=== PATIENT | male | born 1950 | race Caucasian/White ===

== ENCOUNTER 2017-08-26 10:13 | Inpatient (IN) | payer MEDICARE, OTHER ==
[~2017-08-26] VITALS: Ht 172.7 cm; Wt 88.2 kg
[2017-08-26 13:34] LABS: BASOPHILS 0.2 % (0-2); EOSINOPHILS 0.3 % (0-7); HEMATOCRIT 41.1 % (42.0-54.0); HEMOGLOBIN 14.1 g/dL (13.5-17.5); IMMATURE GRANULOCYTES 0.3 % (0-5); MCH 30.9 pg (26.0-34.0); MCHC 34.3 g/dL (31.0-37.0); MCV 90.1 fL (80.0-100.0); MEAN PLATELET VOLUME 9.7 fL (7.4-10.4); MONOCYTES 6.5 % (2-11); NEUTROPHILS 78.7 % (40-80); PLATELET COUNT 158 10x3/uL (130-400); RBC 4.56 10x6/uL (4.20-6.10); RDW 13.2 % (11.5-14.5); WBC 11.8 10x3/uL (4.8-10.8)
[2017-08-26 13:45] LABS: INR 1.02 (0.85-1.17); PROTIME 13.3 SECONDS (11.6-15.0)
[2017-08-26 14:01] LABS: ALBUMIN 3.2 g/dL (3.4-5.0); ALKALINE PHOSPHATASE 95 U/L (46-116); ALT (SGPT) 21 U/L (10-68); BILIRUBIN - TOTAL 0.27 mg/dL (0.2-1.3); CALC OSMOLALITY 274 mosm/kg (275-300); CARBON DIOXIDE 25.4 mmol/L (21.0-32.0); CHLORIDE - SERUM 103 mmol/L (98-107); CREATININE - SERUM 0.9 mg/dL (0.6-1.3); GLUCOSE 97 mg/dL (74-106); POTASSIUM - SERUM 3.4 mmol/L (3.5-5.1); PROTEIN - SERUM 6.5 g/dL (6.4-8.2); SODIUM 136 mmol/L (136-145); UREA NITROGEN 20 mg/dL (7-18); eGFR NON AFRICAN AMERICAN 89 mL/min (90-120)
[2017-08-26 20:00] VITALS: BP 125/74; Ht 172.7 cm; Wt 88.2 kg
--- NOTE | 2017-08-26 20:06 | NUR ---
A&O, DENIES NEEDS, CALL LIGHT IN REACH, BED LOWEST POSITION, WILL CONTINUE TO MONITOR
[2017-08-26 20:44] VITALS: BP 104/64
[2017-08-27 00:27] VITALS: BP 111/63
[2017-08-27 04:59] VITALS: BP 122/62
--- NOTE | 2017-08-27 06:00 | NUR ---
EYES CLOSED RESPIRATIONS WITH EASE AND UNLABORED.
[2017-08-27 08:25] VITALS: BP 128/67
[2017-08-27] MEDS ORDERED: HYDROCHLOROTHIA25 MG PO (10:17)
[2017-08-27] MEDS ORDERED: OMEPRAZOLE20 M1 PO (10:17)
[2017-08-27] MEDS ORDERED: ZOCOR40 MG PO (10:18)
[2017-08-27] MEDS ORDERED: KLONOPIN1 MG PO (10:19)
[2017-08-27] MEDS ORDERED: HYDROCODONE-APA1 TAB PO (10:21)
[2017-08-27] MEDS ORDERED: FLOMAX0.4 MG PO (10:22)
[2017-08-27] MEDS ORDERED: MOBIC7.5 MG PO (10:22)
--- NOTE | 2017-08-27 10:42 | NUR ---
Patient Name: MARGARITA NOGUEIRA Admission Status: ER Accout number: [id number] Admission Date: 08-26-2017 : 1950 Admission Diagnosis: Attending: ZULMA SHARIF Current LOS: 1 Anticipated DC Date: 08-29-2017 Planned Disposition: Home Primary Insurance: MEDICARE A & B Discharge Planning Comments: CM MET WITH PATIENT AND (DARLINE) REGARDING D/C NEEDS AND PLANS. PATIENT STATED HIS SON WILL DRIVE HIM HOME AT DISCHARGE. PATIENT STATED THERE ARE NO STEPS OR STAIRS AT HIS HOME. PATIENT IS INDEPENDENT WITH HIS CARE AND HAS A WALKER, BSC, AND CANE AT HOME. PATIENTS PCP IS DR. JAMISON AND PHARMACY IS [facility]. PATIENT DOES NOT WANT HOME HEALTH AT THIS TIME. CM WILL CONTINUE TO FOLLOW PATIENT WITH D/C NEEDS AND PLANS. PCP DR. JAMISON IN [facility]- [phone] DARLINE () [phone] Steam Box Tender: Cristal Srinivasan Is the patient Alert and Oriented? Yes 0 * How many steps to enter\exit or inside your home? 0 0 * PCP DR. Yaharia JAMISON IN [place] 0 * Pharmacy [facility] [place] [facility] * Preadmission Environment Home with Family 0 * ADLs Independent 0 * Equipment Bedside Commode Cane Walker 0 * List name and contact numbers for known caregivers / representatives who currently or will assist patient after discharge: DARLINE () [phone] * Community resources currently utilized None 0 * Additional services required to return to the preadmission environment? Yes 0 * Can the patient safely return to the preadmission environment? Yes 0 * Has this patient been hospitalized within the prior 30 days at any hospital? No 0 Grand Total: 0
--- NOTE | 2017-08-27 14:24 | NUR ---
VOIDED 350CC OF CLEAR URINE IN URINAL IN RR @1421
[2017-08-27 14:41] VITALS: BP 113/77
[2017-08-27 16:00] VITALS: BP 115/54
[2017-08-27 20:55] VITALS: BP 112/62
--- NOTE | 2017-08-27 22:12 | NUR ---
REC'D LYING IN BED. ALERT AND ORIENTED X4. DENIED PAIN AT THIS TIME. DENIED NEEDS AT THIS TIME. NO DISTRESS NOTED. INSTRUCTED TO CALL IF NEEDED ANYTHING, VERBALIZED UNDERSTANDING. WILL CONT TO MONITOR. BED LOW, LOCKED, CALL LIGHT IN REACH.
--- NOTE | 2017-08-28 01:15 | NUR ---
PATIENT IS RESTING QUIETLY WITH EYES CLOSED, NO SIGNS OF DISTRESS. BED IN LOWEST POSITION, CALL LIGHT IN REACH.
[2017-08-28 04:00] VITALS: BP 110/70
[2017-08-28 05:46] LABS: HEMATOCRIT 40.2 % (42.0-54.0); HEMOGLOBIN 13.6 g/dL (13.5-17.5)
--- NOTE | 2017-08-28 07:56 | NUR ---
PT LYING IN BED WITH HOB AT 35. PT REQUESTED COFFEE, STATED NO PAIN AT THIS TIME, BED IN LOW POSITION, CALL LIGHT IN REACH
[2017-08-28 08:00] VITALS: BP 157/62
--- NOTE | 2017-08-28 11:57 | NUR ---
PATIENT SITTING UP IN CHAIR READING PAPER AT THIS TIME. NO COMPLAINTS. IV INTACT. SHANK CARRIER FOR PAIN. CALL LIGHT WITHIN REACH.
--- NOTE | 2017-08-28 12:22 | NUR ---
REHAB PRESCREENING Rehab referral received and chart reviewed. Mr. Craig does not have a rehab diagnosis and does not meet admission criteria for acute inpatient rehab. Thank you for this referral! Jenni Linn [facility] Exterior Door Installer
--- NOTE | 2017-08-28 12:41 | NUR ---
CM REASSESSMENT NOTE: [facility] RADHA [facility]ULL[facility]) IN ROOM VISITING WITH PATIENT.
[2017-08-28 12:45] VITALS: BP 124/73
--- NOTE | 2017-08-28 14:55 | NUR ---
PT PARTS COUNTERMAN WAS DC, WASTED 27MG, PT HAS ORAL PAIN MEDS ORDERED IF NEEDED.
[2017-08-28 16:45] VITALS: BP 121/75
--- NOTE | 2017-08-28 19:00 | NUR ---
REPORT RECEIVED AND CARE OF PT ASSUMED. PT SITTING UP IN CHAIR WATCHING TV. IV IN LEFT FA SALINE LOCKED. WILL MONITOR CLOSLEY FOR NEEDS. CALL LIGHT WITHIN REACH.
[2017-08-28 20:16] VITALS: BP 123/59
--- NOTE | 2017-08-28 21:13 | NUR ---
HS MEDICATIONS GIVEN TO INCLUDE PERCOCET 10 PER REQUEST FOR PAIN, PER PRN ORDER. WILL CONTINUE TO MONITOR FOR NEEDS. PT SITTING UP IN CHAIR.
[2017-08-28 23:39] VITALS: BP 124/56
--- NOTE | 2017-08-29 01:40 | NUR ---
GAVE PERCOCET 10 PO PER PT REQUEST FOR PAIN AT LEVEL 7/10. WILL MONITOR FOR EFFECTIVENESS. PT SITTIN GUP IN CHAIR, STATES UNABLE TO SLEEP AT THIS TIME. WILL CONTINUE TO MONITO FOR NEEDS. CALL LIGHT WITHIN REACH.
[2017-08-29 05:42] VITALS: BP 120/57
[2017-08-29 06:07] LABS: HEMATOCRIT 36.4 % (42.0-54.0); HEMOGLOBIN 12.3 g/dL (13.5-17.5)
--- NOTE | 2017-08-29 07:45 | NUR ---
PT ASSESSMENT COMPLETE NO ACUTE DISTRESS NOTED VOICES ALL NEEDS TO STAFF. DRESSING INTACT TO LEFT LE. PT TO DISCHARGE OTDAY TO REHAB CENTER WILL FOLLOW
[2017-08-29] MEDS ORDERED: ELIQUIS2.5 MG PO (08:50)
[2017-08-29] MEDS ORDERED: PERCOCET 10/3251 TA1 PO (08:50)
[2017-08-29 09:06] VITALS: BP 116/61; BP 88/64
--- NOTE | 2017-08-29 09:10 | NUR ---
CM REASSESSMENT NOTE: PATIENT IS DISCHARGING HOME TODAY/DENIES HOME HEALTH/SPOUSE DRIVING PATIENT HOME. PATIENT HAD NO OTHER NEEDS FOR D/C.
--- NOTE | 2017-08-29 12:50 | NUR ---
DISCHARGE INSTRUCTIONS GIVEN AND UNDERSTANDING EXPRESSED PIV D/C REPORT CALLED TO [facility].
--- NOTE | 2017-08-29 14:00 | NUR ---
PT DISCHARGED WITH FACILTIY AT THIS TIME VIA WHEELCHAIR.
--- NOTE | 2017-10-16 13:43 | OP ---
PATIENT NAME: MARGARITA NOGUEIRA MEDICAL RECORD: [id number] :[birth year] LOCATION:[id number] ADMISSION DATE:08/26/17 SURGEON: ZULMA SHARIF MD DATE OF OPERATION: 08/27/2017 DATE OF PROCEDURE: 08/27/2017 PREOPERATIVE DIAGNOSIS: Left tibial plateau fracture. POSTOPERATIVE DIAGNOSIS: Left tibial plateau fracture. PROCEDURE: Open reduction and internal fixation of left tibial plateau fracture. SURGEON: Zulma Sharif MD ANESTHESIA: General. INTRAOPERATIVE COMPLICATIONS: None. SUMMARY OF PATHOLOGIC FINDINGS: Essentially none. OPERATIVE SUMMARY IN DETAIL: After obtaining the appropriate preoperative orthopedic surgery consent as well as anesthetic consultation, evaluation and clearance, the patient was brought to the operating room and placed on the operating table in supine position. After adequate general laryngeal mask airway was administered, tourniquet was placed about the proximal aspect of left lower extremity. Left lower extremity was then prepped and draped in a routine sterile fashion. The leg was elevated and exsanguinated, tourniquet was inflated to 350 mmHg. Routine curvilinear incision was made over the anterolateral aspect of the proximal tibia, taken up to just beneath the knee joint. Dissection was carried down. The entire lateral aspect of the bone was exposed. Then, under fluoroscopic guidance, large reduction clamps were utilized for reduction maneuver until it was felt that the tibial plateau was in the position. The Naila periarticular plate was utilized. Serial and sequential fixation was done with both combination of locking and compression screws. At this point, final radiographs were submitted for radiologist review. The wound was then copiously irrigated and closed in layers. The fascial plane closed with #1 Vicryl followed by #1 Vicryl, subq with 2-0 Vicryl and skin with sukhdeep. Sterile dressings were applied. The tourniquet was deflated. The patient was awakened, taken to recovery room in stable condition. All final needle and sponge counts were correct. TRANSINT:[id number] Voice Confirmation ID: [id number] DOCUMENT ID: [id number] ZULMA SHARIF MD at 1343 CC: [id number] DICTATION DATE: 10/16/17 1146 TORCH SHEARER: 10/16/17 1231 DIS IN 08/29/17 [facility] [address] [place] [address]
== END 2017-08-29 14:01 | DRG 494 ==
LOC: D.ER 10:13 → D.MS 14:19 → D.SDCHOLD 08-29 10:30 → D.MS 08-29 10:40
PROVIDERS: Physician Assistant; ADMIT Orthopaedic Surgery
PROC: 0QSH04Z Reposition Left Tibia with Internal Fixation Device, Open Approach (ICD-10-PCS; principal; 2017-08-26)
DX: S82.142A Displaced bicondylar fracture of left tibia, initial encounter for closed fracture (principal); V89.2XXA Person injured in unspecified motor-vehicle accident, traffic, initial encounter; K21.9 Gastro-esophageal reflux disease without esophagitis; J44.9 Chronic obstructive pulmonary disease, unspecified; F17.200 Nicotine dependence, unspecified, uncomplicated

== ENCOUNTER 2017-10-10 15:29 | Emergency (ER) | payer MEDICARE, OTHER ==
[2017-08-26 20:00] VITALS: BMI 29.5
[~2017-10-10 15:29] MED LIST: ELIQUIS2.5 MG PO; FLOMAX0.4 MG PO; HYDROCHLOROTHIA25 MG PO; HYDROCODONE-APA1 TAB PO; KLONOPIN1 MG PO; MOBIC7.5 MG PO; OMEPRAZOLE20 M1 PO; PERCOCET 10/3251 TA1 PO; ZOCOR40 MG PO
== END 2017-10-10 18:03 | disposition home or self-care (01) ==
LOC: D.ER 15:29
DX: T16.2XXA Foreign body in left ear, initial encounter (principal); X58.XXXA Exposure to other specified factors, initial encounter; Y93.89 Activity, other specified; Y92.019 Unspecified place in single-family (private) house as the place of occurrence of the external cause

== ENCOUNTER → 2018-11-19 11:20 | Outpatient (CLI) | payer MEDICARE, OTHER ==
[2017-08-26 20:00] VITALS: BMI 29.5
[2018-11-19 11:45] LABS: BASOPHILS 0.2 % (0-2); EOSINOPHILS 1.8 % (0-7); HEMATOCRIT 44.4 % (42.0-54.0); HEMOGLOBIN 15.3 g/dL (13.5-17.5); IMMATURE GRANULOCYTES 0.1 % (0-5); LYMPHOCYTES 20.9 % (15-50); MCH 31.2 pg (26.0-34.0); MCHC 34.5 g/dL (31.0-37.0); MCV 90.4 fL (80.0-100.0); MEAN PLATELET VOLUME 9.9 fL (7.4-10.4); MONOCYTES 6.5 % (2-11); NEUTROPHILS 70.5 % (40-80); RBC 4.91 10x6/uL (4.20-6.10); RDW 12.9 % (11.5-14.5); WBC 9.5 10x3/uL (4.8-10.8)
[2018-11-19 11:52] LABS: PLATELET COUNT 208 10x3/uL (130-400)
[2018-11-19 13:34] LABS: ERYTHROCYTE SEDIMENTATION RATE 35 mm/hr (0-20)
== END | disposition home or self-care (01) ==
LOC: D.LAB 11:20
PROVIDERS: Internal Medicine Gastroenterology
DX: R10.84 Generalized abdominal pain (principal); R11.0 Nausea; N18.6 End stage renal disease

== ENCOUNTER → 2019-01-26 13:35 | Outpatient (CLI) | payer MEDICARE | END | disposition home or self-care (01) | LOC: D.RT 13:35 | DX: J44.9 Chronic obstructive pulmonary disease, unspecified (principal) ==

== ENCOUNTER 2020-07-02 22:24 | Emergency (ER) | payer MEDICARE ==
[~2020-07-02] VITALS: Ht 172.7 cm; Wt 88.6 kg
[2020-07-02 22:33] VITALS: Ht 172.7 cm; Wt 88.6 kg
[2020-07-03 00:39] VITALS: BP 133/73
== END 2020-07-03 00:39 | disposition home or self-care (01) ==
LOC: D.ER 22:24
DX: T16.2XXA Foreign body in left ear, initial encounter (principal); J44.9 Chronic obstructive pulmonary disease, unspecified; Z72.0 Tobacco use

== ENCOUNTER → 2020-12-14 13:37 | Outpatient (CLI) | payer MEDICARE, BC ==
[2020-07-02 22:33] VITALS: BMI 29.7
== END | disposition home or self-care (01) ==
LOC: D.LAB 13:37
PROVIDERS: ATTEND Internal Medicine Pulmonary Disease
DX: J44.9 Chronic obstructive pulmonary disease, unspecified (principal)

== ENCOUNTER → 2021-02-01 11:40 | Outpatient (CLI) | payer MEDICARE, BC ==
[2020-07-02 22:33] VITALS: BMI 29.7
== END | disposition home or self-care (01) ==
LOC: D.LAB 11:40
PROVIDERS: ATTEND Internal Medicine Pulmonary Disease
DX: J44.9 Chronic obstructive pulmonary disease, unspecified (principal); Z11.52 Encounter for screening for COVID-19

== ENCOUNTER → 2021-03-13 09:21 | Outpatient (CLI) | payer MEDICARE, BC ==
[2020-07-02 22:33] VITALS: BMI 29.7
== END | disposition home or self-care (01) ==
LOC: D.LAB 09:21
PROVIDERS: ATTEND Internal Medicine Pulmonary Disease
DX: J44.9 Chronic obstructive pulmonary disease, unspecified (principal); Z20.822 Contact with and (suspected) exposure to COVID-19